=== PATIENT | male | born 1950 | race Asian ===

== ENCOUNTER → 2018-06-06 | Day surgery (SDC) | payer BC ==
[~2018-06-06] MED LIST: LIDOCAINE HCL 1% 20ML VIAL (Pyxis) INJ ONE; SODIUM BICARBONATE 4% (2.4MEQ) 5ML VIAL IV ONE
== END | disposition home or self-care (01) ==
LOC: RAD 11:21
PROVIDERS: ATTEND Specialist
DX: R18.8 Other ascites (principal)
CPT/HCPCS: 49083; J3490

== ENCOUNTER 2018-07-11 12:37 | Emergency (ER) | payer BC, MEDICAID ==
[~2018-07-11] VITALS: Ht 157.5 cm; Wt 44.0 kg
[2018-07-12 00:16] VITALS: BP 145/71
== END 2018-07-12 00:30 | disposition left against medical advice (07) ==
LOC: ER 13:41
DX: R18.8 Other ascites (principal); K74.60 Unspecified cirrhosis of liver; R03.0 Elevated blood-pressure reading, without diagnosis of hypertension; Z71.89 Other specified counseling
CPT/HCPCS: 82962; 99283

== ENCOUNTER 2018-07-24 12:37 | Emergency (ER) | payer BC, MEDICAID ==
[~2018-07-24] VITALS: Ht 157.5 cm; Wt 45.0 kg
[2018-07-24 14:10] LABS: BASOPHILS % 0.4 % (0.0-2.0); EOSINOPHILS % 10.5 % (0.0-5.0); HEMATOCRIT. 23.6 % (42.0-52.0); LYMPHOCYTES % 22.6 % (20.0-50.0); MEAN CORPUSCULAR HEMOGLOBIN 36.3 pg (28.0-32.0); MEAN CORPUSCULAR VOLUME 106.7 fL (80.0-94.0); NEUTROPHILS % 56.5 % (40.0-76.0); RED BLOOD CELL COUNT 2.21 mill/uL (4.7-6.1); RED CELL DISTRIBUTION WIDTH 16.7 % (11.6-14.6)
[2018-07-24 14:11] LABS: CHLORIDE 113 mEq/L (98-107)
[2018-07-24 14:14] LABS: INR 1.5; PROTHROMBIN TIME 14.5 sec (9.1-11.1)
[2018-07-24] MEDS ORDERED: SODIUM BICARBONATE 4% (2.4MEQ) 5ML VIAL IV ONE (16:00)
[2018-07-24] MEDS ORDERED: LIDOCAINE HCL 1% 20ML VIAL (Pyxis) INJ ONE (16:01)
[2018-07-24 18:50] VITALS: BP 145/67
== END 2018-07-24 18:59 | disposition home or self-care (01) ==
LOC: ER 12:37
DX: K74.60 Unspecified cirrhosis of liver (principal); R18.8 Other ascites; D64.9 Anemia, unspecified; D69.6 Thrombocytopenia, unspecified; R74.0 Nonspecific elevation of levels of transaminase and lactic acid dehydrogenase [LDH]; E88.09 Other disorders of plasma-protein metabolism, not elsewhere classified; E11.9 Type 2 diabetes mellitus without complications
CPT/HCPCS: 36415; 49083; 80053; 82962; 85025; 85049; 85610; 99285; J3490

== ENCOUNTER 2018-08-25 12:02 | Emergency (ER) | payer BC, MEDICAID ==
[~2018-08-25] VITALS: Ht 157.5 cm; Wt 56.0 kg
[2018-08-25 12:58] LABS: BASOPHILS % 0.5 % (0.0-2.0); EOSINOPHILS % 5.6 % (0.0-5.0); HEMATOCRIT. 26.6 % (42.0-52.0); LYMPHOCYTES % 22.1 % (20.0-50.0); MEAN CORPUSCULAR HEMOGLOBIN 36.9 pg (28.0-32.0); MEAN CORPUSCULAR VOLUME 108.8 fL (80.0-94.0); MEAN PLATELET VOLUME 10.1 fl (7.4-10.4); MONOCYTES % 8.7 % (2.0-8.0); NEUTROPHILS % 63.1 % (40.0-76.0); PLATELET 79 x1000/uL (130-400); RED BLOOD CELL COUNT 2.45 mill/uL (4.7-6.1); RED CELL DISTRIBUTION WIDTH 16.6 % (11.6-14.6)
[2018-08-25 13:02] LABS: CHLORIDE 109 mEq/L (98-107)
[2018-08-25 13:05] LABS: INR 1.4; PROTHROMBIN TIME 14.1 sec (9.6-11.0)
[2018-08-25 15:48] VITALS: BP 156/82
== END 2018-08-25 16:05 | disposition home or self-care (01) ==
LOC: ER 12:02
DX: K76.9 Liver disease, unspecified (principal); R14.0 Abdominal distension (gaseous); E11.9 Type 2 diabetes mellitus without complications; Z87.891 Personal history of nicotine dependence
CPT/HCPCS: 36415; 49083; 99284; 99285

== ENCOUNTER 2018-09-05 11:30 | Emergency (ER) | payer BC, MEDICAID ==
[~2018-09-05] VITALS: Ht 157.5 cm; Wt 87.0 kg
[2018-09-05 12:31] LABS: BASOPHILS % 0.6 % (0.0-2.0); EOSINOPHILS % 7.5 % (0.0-5.0); HEMOGLOBIN. 8.7 g/dL (14.0-18.0); LYMPHOCYTES % 23.7 % (20.0-50.0); MEAN CORPUSCULAR HEMOGLOBIN 36.9 pg (28.0-32.0); MEAN CORPUSCULAR VOLUME 109.6 fL (80.0-94.0); MEAN PLATELET VOLUME 10.4 fl (7.4-10.4); MONOCYTES % 8.1 % (2.0-8.0); NEUTROPHILS % 60.1 % (40.0-76.0); PLATELET 70 x1000/uL (130-400); RED BLOOD CELL COUNT 2.37 mill/uL (4.7-6.1); RED CELL DISTRIBUTION WIDTH 16.1 % (11.6-14.6)
[2018-09-05 12:37] LABS: CHLORIDE 109 mEq/L (98-107)
[2018-09-05 12:40] LABS: INR 1.4; PROTHROMBIN TIME 14.3 sec (9.6-11.0)
[2018-09-05 14:41] VITALS: BP 159/82
== END 2018-09-05 14:44 | disposition home or self-care (01) ==
LOC: ER 12:04
DX: R18.8 Other ascites (principal); R10.9 Unspecified abdominal pain; R14.0 Abdominal distension (gaseous); E11.9 Type 2 diabetes mellitus without complications; K76.9 Liver disease, unspecified; F10.20 Alcohol dependence, uncomplicated; Z87.81 Personal history of (healed) traumatic fracture; Y90.9 Presence of alcohol in blood, level not specified
CPT/HCPCS: 36415; 49083; 87075; 99285